=== PATIENT | male | born 1990 | race Caucasian/White ===

== ENCOUNTER → 2019-10-05 08:27 | Outpatient (BNVA) | payer OTHER, SELFPAY | PROVIDERS: Family Provider Nurse Practitioner; PCP Family Medicine; Visit Provider Counselor Mental Health | DX: F33.0 Major depressive disorder, recurrent, mild (principal) | CPT/HCPCS: 90834 ==

== ENCOUNTER → 2019-11-08 10:53 | Outpatient (BNVA) | payer OTHER, SELFPAY | PROVIDERS: Family Provider Nurse Practitioner; PCP Family Medicine; Visit Provider Psychiatry & Neurology Psychiatry | DX: F43.20 Adjustment disorder, unspecified (principal) | CPT/HCPCS: 80061; 83036; 83721 ==

== ENCOUNTER → 2020-03-09 08:19 | Outpatient (BNVA) | payer MEDICAID, SELFPAY ==
[2019-11-11 14:46] VITALS: BP 114/73; BMI 46.2
== END ==
PROVIDERS: Family Provider Nurse Practitioner; PCP Family Medicine; Visit Provider Counselor Mental Health
DX: F33.41 Major depressive disorder, recurrent, in partial remission (principal)
CPT/HCPCS: 90832

== ENCOUNTER → 2020-05-19 12:06 | Outpatient (BNVA) | payer MEDICAID, SELFPAY ==
[2019-11-11 14:46] VITALS: BP 114/73; BMI 46.2
== END ==
PROVIDERS: Family Provider Nurse Practitioner; PCP Family Medicine; Visit Provider Internal Medicine
DX: Z20.828 Contact with and (suspected) exposure to other viral communicable diseases (principal)
CPT/HCPCS: 87635

== ENCOUNTER → 2020-06-13 08:45 | Outpatient (BNVA) | payer MEDICAID, SELFPAY ==
[2019-11-11 14:46] VITALS: BP 114/73; BMI 46.2
== END ==
PROVIDERS: Family Provider Nurse Practitioner; PCP Family Medicine; Visit Provider Counselor Mental Health
DX: F33.0 Major depressive disorder, recurrent, mild (principal)
CPT/HCPCS: 90834; 90832

== ENCOUNTER → 2020-06-21 08:33 | Outpatient (BNVA) | payer MEDICAID, SELFPAY ==
[2019-11-11 14:46] VITALS: BP 114/73; BMI 46.2
== END ==
PROVIDERS: Family Provider Nurse Practitioner; PCP Family Medicine; Visit Provider Counselor Mental Health
DX: F33.0 Major depressive disorder, recurrent, mild (principal)
CPT/HCPCS: 90834; 90832

== ENCOUNTER 2021-02-14 15:30 | Outpatient (CLI) | payer BC, MEDICAID, SELFPAY ==
[2019-11-11 14:46] VITALS: BP 114/73; BMI 46.2
--- NOTE | 2021-02-14 16:01 | XR_ITS ---
WS: [id number] Lumbar spine, AP, both obliques, lateral and L5-S1 spot, 02/14/2021 Clinical Data: LOW BACK PAIN Comparison: None. Findings: No compression fractures or subluxation is seen. No disc space narrowing is seen. The transverse proc esses and SI joints are normal. The oblique films show no spondylolisthesis or spondylolisthesis. XR/XR lumbar spine min 4V [id number] Impression: Negative lumbar spine.
== END 2021-02-14 15:31 | disposition home or self-care (01) ==
LOC: RAD 15:41
PROVIDERS: PCP Nurse Practitioner Family; Visit Provider Nurse Practitioner Family
DX: M54.5 Low back pain (principal)
CPT/HCPCS: 72110

== ENCOUNTER 2021-03-07 20:00 | Outpatient (CLI) | payer BC, MEDICAID, SELFPAY ==
[2019-11-11 14:46] VITALS: BP 114/73; BMI 46.2
== END 2021-03-07 20:01 | disposition home or self-care (01) ==
LOC: SLEEP 03-08 09:38
PROVIDERS: PCP Nurse Practitioner Family; Visit Provider Nurse Practitioner Family
DX: G47.10 Hypersomnia, unspecified (principal); R53.83 Other fatigue; R06.83 Snoring; G47.33 Obstructive sleep apnea (adult) (pediatric)
CPT/HCPCS: 95810

== ENCOUNTER 2021-04-13 13:35 | Outpatient (CLI) | payer BC, MEDICAID, SELFPAY ==
[2019-11-11 14:46] VITALS: BP 114/73; BMI 46.2
--- NOTE | 2021-04-13 11:00 | US_ITS ---
WS: [id number] SCROTAL ULTRASOUND EXAMINATION CLINICAL INFORMATION: TESTICULAR PAIN, LEFT COMPARISON: None. FINDINGS: TESTES Right testicle is normal in appearance. Normal vascularity. Right testes size: 4.8 cm x 3.6 cm x 2.3 cm. Left testicle not visualized Increased echogenic tissue throughout the left scrotum likely due to recurrent inguinal hernia with h erniated omental fat. No definite peristalsis to indicate herniated bowel. EPIDIDYMIDES Enlarged right epididymis with increased vascularity compatible with epididymitis HYDROCELE Small left hydrocele VARICOCELE None. OTHER FINDINGS None. US/US scrotum 99202 IMPRESSION: 1. Right epididymitis 2. Left testicle is not visualized. 3. Increased echogenic tissue throughout the left scrotum likely due to recurr ent inguinal hernia with herniated omental fat. No definite peristalsis to que osiel herniated bowel. Recommend further evaluation with CT abdomen pelvis with contrast for better anatomic detail. Service Dispatcher communicated Preliminary results to office at time of exam
--- NOTE | 2021-04-13 16:15 | CTR_ITS ---
PROCEDURE INFORMATION: Exam: CT Pelvis With Contrast Exam date and time: 04/13/2021 4:15 PM Age: 31 years old Clinical indication: Abnormal findings; Abnormal imaging test; Patient HX: Scrotal/testiclar pain w swelling - abn US - epididimitis and hernia; Additional info: Scrotal/testicular pain TECHNIQUE: Imaging protocol: Computed tomography images of the pelvis with intravenous contrast. Radiation optimization: All CT scans at this facility use at least one of these dose optimization techniques: automated exposure control; mA and/or kV adjustment per patient size (includes targeted exams where dose is matched to clinical indication); or iterative reconstruction. Contrast material: OMNI 300; Contrast volume: 95 ml; Contrast route: INTRAVENOUS (IV); COMPARISON: CT Abdomen/Pelvis Renal [id number] 06/09/2018 6:51 AM RADIATION DOSE METRICS: Total DLP (mGy-cm): 1558.53 FINDINGS: Stomach and bowel: Visualized small bowel and colon are unremarkable. Appendix: No evidence of appendicitis. Intraperitoneal space: See Soft tissues finding. Lymph nodes: Unremarkable. No enlarged lymph nodes. Urinary bladder: Normal. No mass. Reproductive: Small volume left scrotum hydrocele. Mild diffuse scrotal wall thickening. Bones/joints: Unremarkable. No acute fracture. No dislocation. Soft tissues: Massive left inguinal hernia contains fat and bowel loops. Nonspecific stranding in the hernia sac. Mild left scrotum varicocele. CT/CT pelvis w con* [id number] IMPRESSION: 1. There is redemonstration of a very large left inguinal hernia which contains a large volume of abdominal fat, nondilated large bowel loops, however there is some nonspecific fat stranding of the herniated fat. 2. Small volume left scrotum hydrocele. 3. Mild diffuse scrotal wall thickening. 4. Mild left scrotum varicocele. Radiation Dose CTDIVOL = (mGy): DLP = 1558.53 (mGy-cm)
[2021-04-13] MEDS: iohexol 300 mg/mL 100 mL Btl IV (16:24)
== END 2021-04-13 13:36 | disposition home or self-care (01) ==
PROVIDERS: PCP Nurse Practitioner Family; Visit Provider Nurse Practitioner Family
DX: N50.812 Left testicular pain (principal); N50.82 Scrotal pain; N43.3 Hydrocele, unspecified; I86.1 Scrotal varices; N45.1 Epididymitis
CPT/HCPCS: 72193; 76870

== ENCOUNTER → 2021-05-04 10:15 | Outpatient (BNVA) | payer BC, MEDICAID, SELFPAY ==
[2019-11-11 14:46] VITALS: BP 114/73; BMI 46.2
== END ==
PROVIDERS: PCP Nurse Practitioner Family; Visit Provider Surgery
DX: K40.91 Unilateral inguinal hernia, without obstruction or gangrene, recurrent (principal); Z20.822 Contact with and (suspected) exposure to COVID-19
CPT/HCPCS: 87635

== ENCOUNTER 2021-05-09 07:44 | Day surgery (SDC) | payer BC, MEDICAID, SELFPAY ==
[2019-11-11 14:46] VITALS: BP 114/73; BMI 46.2
[2021-05-08 11:13] VITALS: BMI 30.9
[2021-05-08 11:14] VITALS: BMI 46.3
[2021-05-09] VITALS (11 sets, daily range): BP systolic 101–136; BP diastolic 70–92; PULSE 109–113; RESP 16–25; TEMP 36.2–37.1; O2SAT 94–100
--- NOTE | 2021-05-09 07:55 | W.PM.OPSUD ---
Surgery/Procedure H&P Update DATE OF PROCEDURE: May 09, 2021 DATE H&P PERFORMED: 04/27/21 H&P UPDATE INFORMATION: I have reviewed H&P completed within last 30 days, I have examined patient prior to procedure and No changes to prior documentation PLANNED PROCEDURE: Operation Date: 05/09/21 09:35 Proposed Procedures p Inguinal Hernia Repair w/ Mesh 72745 K40.91(Left) - Vinny Louise MD
--- NOTE | 2021-05-09 08:24 | ANES.PREANE2 ---
Pre-Anesthetic Assessment Pre-Anesthetic Assessment: Height/Weight: Height 1.63 m Weight 122.47 kg Temp Pulse Resp BP Pulse Ox 97.1 F L 110 H 18 123/92 97 05/09/21 08:02 05/09/21 08:02 05/09/21 08:02 05/09/21 08:02 05/09/21 08:02 Preop Diagnosis: Recurrent left inguinal hernia Proposed Procedure: Operation Date: 05/09/21 09:35 Proposed Procedures p Inguinal Hernia Repair w/ Mesh 20650 K40.91(Left) - Vinny Louise MD Was Beta Alejo taken within 24 hours: N/A Was Clonidine taken within 24 hours: N/A Last intake: Intake Last Liquid Date 05/08/21 Last Liquid Time 20:00 Last Solid Date 05/08/21 Last Solid Time 20:00 Social: Social History: No alcohol and No tobacco Exam: Pre-Anes Outpt Exam: alert, oriented x 3, clear to auscultation bilaterally and regular rate & rhythm Airway: Submandibular: WNL Cervical ROM: WNL MP: 3 Dentition: Full Pulmonary: Pulmonary: Sleep apnea Metabolic: Metabolic: DM and Morbid obesity Neuropsych: Neuropsych: Depression Anesthetic Plan: ASA status: 3 Anesthesia: General Risk of > 500 ml blood loss (7ml/kg in children): No PFSH Anesthesia PFSH: Medical History (Updated 04/27/21 @ 08:58 by Vinny Louise MD) Diabetes Mild episode of recurrent major depressive disorder Surgical History (Updated 04/27/21 @ 08:58 by Vinny Louise MD) Status post left inguinal hernia repair Social History Current gender identity: Male Data Anesthesia Cardiac Studies: No Data to Display
[2021-05-09 08:36] LABS: Glucose Point of Care 165 mg/dL (70-110)
[2021-05-09] MEDS: vancomycin 1,000 MG in sodium chloride 0.9% 250 ML 250 MG IV (08:40)
[2021-05-09] MEDS: sodium chloride 0.9% 1,000 ML 30 ML IV (08:40)
[2021-05-09] MEDS: lidocaine 1% INJ 20 mL INJECTION (09:40)
[2021-05-09] MEDS: acetaminophen 1,000 MG/100 ML PIGGYBACK 400 MG IV (13:51)
--- NOTE | 2021-05-09 14:16 | ANE.PACU2 ---
Inpatient post-anesthesia follow up: Airway intact: Yes Vital signs: Temperature 97.8 F Pulse Rate 110 Respiratory Rate 18 Blood Pressure 110/80 Pulse Oximetry 96 Oxygen Delivery Me thod Nasal Cannula Oxygen Flow Rate 2 Fraction of Inspir ed Oxygen Hydration adequate: Yes Nausea and vomiting: No Pain level: 5 Mental status: Baseline
--- NOTE | 2021-05-09 16:10 | PM.OP ---
Operative Report Date of procedure: May 09, 2021 Pre-op Diagnosis: Recurrent left inguinal hernia Pre-op Diagnosis: BMI 46 Post-op Findings: Recurrent incarcerated direct and indirect left inguinal hernia containing omentum and sigmoid colon Procedure Done: Open repair of recurrent incarcerated direct and indirect left inguinal hernia with Bard mesh and plug Specimens removed/disposition: hernia sac Surgeon: Vinny Louise Anesthesia: General Condition: stable Disposition: PACU Procedure: A 5 cm incision was made over the left inguinal canal using 15 blade, the subcutaneous tissue, Miriam's fascia divided using electrocautery until the external oblique aponeurosis was identified. Using a 15 blade, a small opening was made in the external oblique aponeurosis along the length of the fibers, this was grasped with hemostats and opened using Metzenbaum scissors medially to the external ring and laterally beyond the internal ring. The contents of inguinal canal were dissected free from the wall and a [place] drain was placed around it. There was a large hernia extending into the scrotum. I bluntly dissected the hernia sac from the scrotum and the left testes and this was externalized. The testes and the spermatic cord was bluntly dissected free from the large hernia sac. The hernia sac was opened and there was omentum and sigmoid colon noted within the hernia sac. The sac was dissected down to the inguinal canal where there was a large direct hernia. The herniated contents could not be reduced and through the direct hernia and therefore the omentum was excised using a energy device. The hernia sac was excised at the level of the direct hernia. After patient placing the patient in Trendelenburg position the sigmoid colon was finally reduced into the peritoneal cavity. There was also a smaller indirect hernia. A large plug was placed in the internal ring as well as in the direct hernia since the posterior wall was attenuated and sutured using 2-0 Prolene [id number] suture. A Proloop mesh was introduced and using 2-0 Prolene suture the medial edge of the mesh were sutured to the fascia overlying the pubic tubercle, and the suture was run to approximate the inferior edge of the mesh to the shelving edge of inguinal ligament to a point beyond the internal ring. Interrupted 2-0 Prolene suture was used to approximate the superior edge of the mesh to the internal oblique muscles and the 2 limbs of the mesh was sutured lateral to the internal ring and approximated to the internal oblique muscle. Lateral to the internal ring, the posterior wall was again attenuated and this was reinforced with the Ultrapro mesh secured in place with 2-0 Prolene sutures. The wound was copiously irrigated with saline, good hemostasis noted, Surgicel was placed within the scrotum since there was some venous oozing and the external oblique aponeurosis was closed with running 2-0 Vicryl suture, Miriam's fascia approximated using running 3-0 Vicryl suture in layers, and skin was closed using running subcuticular 4-0 Monocryl suture and Dermabond. 30 mL of 0.5% Marcaine was infiltrated around the incision. The patient was extubated and transferred to recovery room in stable condition.
== END 2021-05-09 14:49 | disposition home or self-care (01) ==
PROVIDERS: PCP Nurse Practitioner Family; Visit Provider Surgery
PROC: (CPT 49521; principal; 2021-05-09 09:25)
DX: K40.31 Unilateral inguinal hernia, with obstruction, without gangrene, recurrent (principal); G47.30 Sleep apnea, unspecified; E11.9 Type 2 diabetes mellitus without complications; E66.01 Morbid (severe) obesity due to excess calories; Z68.42 Body mass index [BMI] 45.0-49.9, adult; F32.9 Major depressive disorder, single episode, unspecified
CPT/HCPCS: 49521; 36416; 82962; 96365; C1781; J1100; J2405; J2704; J3010; J3490; J3535; J7030; J7050

== ENCOUNTER → 2021-09-02 15:18 | Outpatient (BNVA) | payer BC, MEDICAID, SELFPAY ==
[2019-11-11 14:46] VITALS: BP 114/73; BMI 46.2
== END ==
PROVIDERS: PCP Nurse Practitioner Family; Visit Provider Family Medicine
DX: J01.90 Acute sinusitis, unspecified (principal)
CPT/HCPCS: 87400; 87635

== ENCOUNTER → 2023-06-23 13:04 | Outpatient (BNVA) | payer OTHER, SELFPAY ==
[2019-11-11 14:46] VITALS: BP 114/73; BMI 46.2
== END ==
PROVIDERS: PCP Nurse Practitioner Family; Visit Provider Psychiatry & Neurology Psychiatry
DX: F33.0 Major depressive disorder, recurrent, mild (principal); Z79.899 Other long term (current) drug therapy
CPT/HCPCS: 80061; 83036

== ENCOUNTER 2024-01-06 20:00 | Outpatient (CLI) | payer BC, SELFPAY ==
[2023-07-07 10:23] VITALS: BP 129/80; BMI 46.0
== END 2024-01-06 20:01 | disposition home or self-care (01) ==
LOC: SLEEP 01-07 18:53
PROVIDERS: PCP Family Medicine Adult Medicine; Visit Provider Family Medicine Adult Medicine
DX: G47.33 Obstructive sleep apnea (adult) (pediatric) (principal)
CPT/HCPCS: 95811

== ENCOUNTER 2024-06-26 01:49 | Emergency (ER) | payer SELFPAY ==
[2023-07-07 10:23] VITALS: BP 129/80; BMI 46.0
[2024-06-26 01:56] VITALS: BP 143/87; PULSE 120; RESP 18; TEMP 36.6; O2SAT 97
[2024-06-26 01:59] VITALS: BP 143/87; PULSE 116; O2SAT 98
--- NOTE | 2024-06-26 03:26 | XRR_ITS ---
PROCEDURE INFORMATION: Exam: XR Chest Exam date and time: 06/26/2024 3:32 AM Age: 34 years old Clinical indication: Cough and shortness of breath; Patient HX: Cough with congestion and SOB. TECHNIQUE: Imaging protocol: Radiologic exam of the chest. Views: 1 view. COMPARISON: CR XR KUB [id number] 06/29/2018 1:00 PM FINDINGS: Lungs: Unremarkable. No consolidation. Pleural spaces: Unremarkable. No pleural effusion. No pneumothorax. Heart/Mediastinum: Unremarkable. No cardiomegaly. Bones/joints: Unremarkable. XR/XR chest 1V portable [id number] IMPRESSION: No acute findings.
--- NOTE | 2024-06-26 03:31 | ECG_ITS ---
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 Measurements Intervals [place] Rate: 105 P: 45 MO: 147 QRS: 14 QRSD: 88 T: 44 QT: 305 QTc: 403 Interpretive Statements SINUS TACHYCARDIA Otherwise Normal No previous ECG available for comparison Electronically Signed On 06-26-2024 13:40:06 CDT by Selvin Gray M.D. [email or web address]
[2024-06-26 03:48] LABS: Covid PCR NO RESULT (Negative); Influenza A NO RESULT (Negative); Influenza B NO RESULT (Negative); Respiratory Syncytial Virus Ce NO RESULT (Negative)
[2024-06-26 03:59] VITALS: BP 135/63; PULSE 115; O2SAT 99
[2024-06-26 04:36] LABS: Basophils # 0.1 10^3/uL (0.0-0.1); Basophils % 0.7 %; Eosinophils # 0.3 10^3/uL (0.0-0.8); Eosinophils % 3.4 %; Hematocrit 44.5 % (37-53); Lymphocytes # 2.1 10^3/uL (0.8-4.8); Lymphocytes % 20.7 %; Mean Corpuscular HGB Conc 29.9 g/dL (30-55); Mean Corpuscular Hemoglobin 27.7 pg (27-33); Mean Corpuscular Volume 92.5 fl (82-101); Mean Platelet Volume 10.2 fL (7.4-10.4); Monocytes # 0.9 10^3/uL (0.2-0.9); Neutrophils # 6.56 10^3/uL (1.8-7.7); Neutrophils % 65.8 %; Nucleated Red Blood Cells % 0 %; Platelet Count 206 10^3/cmm (157-399); Red Blood Count 4.81 10^6/uL (3.85-5.65); Red Cell Distribution Width 14.3 % (12.1-15.1); White Blood Count 9.97 10^3/uL (3.29-11.43)
[2024-06-26 05:04] LABS: Alanine Aminotransferase 21 U/L (0-41); Albumin Level 3.8 g/dL (3.5-5.2); Alkaline Phosphatase 108 U/L (40-130); Anion Gap 15.6 (5-19); Aspartate Amino Transferase 23 U/L (0-40); Blood Urea Nitrogen 11 mg/dL (6-20); Calcium 8.3 mg/dL (8.5-10.5); Carbon Dioxide 23 mmol/L (22-29); Chloride 99 mmol/L (98-107); Globulin 3.5 g/dL (1.3-4.6); Glomerular Filtration Rate 129.1 mL/min (90-130); Glucose 139 mg/dL (65-115); NT Pro B Type Natriuretic Pept < 36 pg/mL (0-125); Osmolality Calculated 280 mOsm/kg (285-295); Potassium 3.6 mmol/L (3.5-5.1); Sodium 134 mmol/L (136-145); Total Bilirubin 0.3 mg/dL (0.15-1.2); Total Protein 7.3 g/dL (6.6-8.7)
--- NOTE | 2024-06-26 05:06 | W.ED.URI ---
HPI - URI/Sore Throat General: Chief Complaint: Upper Respiratory Infection Stated Complaint: COUGH Time Seen by Provider: 06/26/24 03:07 History of Present Illness: 34 year old male says he's had upper respiratory symptoms such as cough congestion and sore throat for the past five days or so. He denies fever. He is short of breath to some degree. No GI symptoms. He has also noticed leg swelling of late and was concerned because he is diabetic. Swelling is bilateral. He denies chest pain. Related Data Home Medications Medication Instructions Recorded Confirmed cetirizine 10 mg capsule (Zyrtec) 10 mg PO DAILY PRN 10/02/23 rosuvastatin 5 mg tablet 5 mg PO DAILY 10/02/23 Previous Rx's Medication Instructions Recorded docusate sodium 250 mg capsule 250 mg PO DAILY bowel management 08/26/23 #90 caps ibuprofen 200 mg tablet 200 mg PO Q6H PRN Pain (Scale 08/26/23 Score 1-3) #100 tabs metformin 500 mg tablet 500 mg PO DAILY diabetes #90 tabs 08/26/23 multivitamin 1 tab PO DAILY vitamins #90 tabs 08/26/23 BD utra fine lancets 33G #100 ea 10/02/23 contour next test strips #100 ea 10/02/23 CPAP setting Auto 8-12 with 10 #1 ea 01/13/24 Optimal azithromycin 250 mg tablet See Rx Instructions PO .COMPLEX #6 06/26/24 tabs Allergies Allergy/AdvReac Type Severity Reaction Status Date / Time amoxicillin Allergy Unknown Unknown Verified 09/30/23 07:29 [facility] ED [facility]: Medical History (Updated 06/26/24 @ 05:09 by Mina Harry DO) Never smoked tobacco History of kidney stones Morbid obesity with BMI of 45.0-49.9, adult Constipation Diabetes type 2, controlled 03/20/23 A1C 5.9, Obstructive sleep apnea hypopnea, severe 01/06/2024 sleep study showed setting of CPAP range 8-12 with optimal at 10 Anxiety Psychiatric care Mild episode of recurrent major depressive disorder Surgical History History of tonsillectomy History of ureter stent Hx of kidney stones with stent Status post left inguinal hernia repair (05/09/21) recurrent, First left inguinal hernia repair by Dr. Louise and then second hernia repair on 05/09/2021 Dr. Louise when it reoccurred. Family History (Updated 08/26/23 @ 11:18 by Palak Tellez LPN) Father No problems noted. Mother Multiple sclerosis Social History Smoking and tobacco/nicotine status: never used tobacco/nicotine Alcohol intake: never Substance/Drug Use: never Current gender identity: Male Physical Exam Const: COMMON NORMALS: no acute distress GENERAL APPEARANCE: cooperative; not ill appearing and not frail appearing HENMT: COMMON NORMALS: normocephalic, atraumatic and Normal external nose present HEAD & SCALP: normocephalic and atraumatic FACE & SINUS: normal facial exam and face symmetric NOSE: Normal external nose present Eye: COMMON NORMALS: Equal, round and reactive pupils present and EOMs intact bilaterally PUPIL: Yes Equal, round and reactive pupils present Neck/C-Spine: GENERAL: Yes trachea midline Chest: CHEST: Yes Symmetrical chest wall rise Resp: COMMON NORMALS: normal respiratory effort, No retractions, No use of accessory muscles and clear to auscultation bilaterally AUSCULTATION: clear to auscultation bilaterally Cardio: COMMON NORMALS: regular rate and regular rhythm RATE: regular rate RHYTHM: regular rhythm GI: COMMON NORMALS: Normal to inspection, nondistended, normoactive bowel sounds present Extremity: COMMON NORMALS: no pedal edema Neuro: IZABEL COMA SCALE: document GCS findings Izabel coma scale eye opening: Spontaneous Izabel coma scale verbal response: Orientated [place] coma scale motor response: Obey commands Izabel coma scale total score: 15 SENSORY EXAM: Yes extremities (intact) Psych: COMMON NORMALS: speech normal SPEECH: Yes normal speech Skin: COMMON NORMALS: no rashes or lesions noted GENERAL SKIN EXAM: no rashes or lesions noted Course Vital Signs: Vital signs: Vital Signs Temperature 98 F 06/26/24 01:56 Pulse Rate 102 H 06/26/24 05:38 Respiratory Rate 18 06/26/24 01:56 Blood Pressure 147/87 06/26/24 05:38 Pulse Oximetry 96 06/26/24 05:38 MDM - URI/Sore Throat Medical Decision Making Labs unremarkable. chest x ray is negative. He will be discharged with bronchitis dx. return for new or worsening symptoms. Lab Data 06/26/24 04:31 11/02/24 04:31 Radiology Impressions Chest X-Ray 06/26/24 03:26 IMPRESSION: No acute findings. Laboratory Results WBC 9.97 10^3/uL (3.29-11.43) 06/26/24 04:31 RBC 4.81 10^6/uL (3.85-5.65) 06/26/24 04:31 Hgb 13.30 g/dL (11.27-16.99) 06/26/24 04:31 Hct 44.5 % (37-53) 06/26/24 04:31 MCV 92.5 fl (82-101) 06/26/24 04:31 MCH 27.7 pg (27-33) 06/26/24 04:31 MCHC 29.9 g/dL (30-55) L 06/26/24 04:31 RDW 14.3 % (12.1-15.1) 06/26/24 04:31 Plt Count 206 10^3/cmm (157-399) 06/26/24 04:31 MPV 10.2 fL (7.4-10.4) 06/26/24 04:31 Neut % (Auto) 65.8 % 06/26/24 04:31 Lymph % (Auto) 20.7 % 06/26/24 04:31 [place] % (Auto) 9.0 % 06/26/24 04:31 Eos % (Auto) 3.4 % 06/26/24 04:31 Baso % (Auto) 0.7 % 06/26/24 04:31 Neut # (Auto) 6.56 10^3/uL (1.8-7.7) 06/26/24 04:31 Lymph # (Auto) 2.1 10^3/uL (0.8-4.8) 06/26/24 04:31 [place] # (Auto) 0.9 10^3/uL (0.2-0.9) 06/26/24 04:31 Eos # (Auto) 0.3 10^3/uL (0.0-0.8) 06/26/24 04:31 Baso # (Auto) 0.1 10^3/uL (0.0-0.1) 06/26/24 04:31 Nucleated RBC % (auto) 0 % 06/26/24 04:31 Nucleated RBCs # 0.0 /100WBC 06/26/24 04:31 Sodium 134 mmol/L (136-145) L 06/26/24 04:31 Potassium 3.6 mmol/L (3.5-5.1) 06/26/24 04:31 Chloride 99 mmol/L (98-107) 06/26/24 04:31 Carbon Dioxide 23 mmol/L (22-29) 06/26/24 04:31 Anion Gap 15.6 (5-19) 06/26/24 04:31 BUN 11 mg/dL (6-20) 06/26/24 04:31 Creatinine 0.7 mg/dL (0.7-1.2) 06/26/24 04:31 GFR Calculation 129.1 mL/min (90-130) 06/26/24 04:31 Glucose 139 mg/dL (65-115) H 06/26/24 04:31 Calculated Osmolality 280 mOsm/kg (285-295) L 06/26/24 04:31 Calcium 8.3 mg/dL (8.5-10.5) L 06/26/24 04:31 Total Bilirubin 0.3 mg/dL (0.15-1.2) 06/26/24 04:31 AST 23 U/L (0-40) 06/26/24 04:31 ALT 21 U/L (0-41) 06/26/24 04:31 Alkaline Phosphatase 108 U/L (40-130) 06/26/24 04:31 NT-Pro-B Natriuret Pep < 36 pg/mL (0-125) 06/26/24 04:31 Total Protein 7.3 g/dL (6.6-8.7) 06/26/24 04:31 Albumin 3.8 g/dL (3.5-5.2) 06/26/24 04:31 Globulin 3.5 g/dL (1.3-4.6) 06/26/24 04:31 Coronavirus (PCR) No result (Negative) 06/26/24 03:32 Influenza A (PCR) No result (Negative) 06/26/24 03:32 Influenza Type B (PCR) No result (Negative) 06/26/24 03:32 RSV (PCR) No result (Negative) 06/26/24 03:32 All radiology interpretation(s) finalized by discharge Discharge Plan Discharge Patient Disposition: Home Clinical Impression: Bronchitis Condition: Stable Prescriptions: New azithromycin 250 mg tablet See Rx Instructions .ROUTE .COMPLEX Qty: 6 0RF Rx Instructions: For 250 mg dose pack: take 500 mg today (day 1), then 250 mg for 4 days (days 2-5) No Action ibuprofen 200 mg tablet 200 mg PO Q6H PRN (Reason: Pain (Scale Score 1-3)) Qty: 100 3RF metformin 500 mg tablet 500 mg PO DAILY Qty: 90 1RF docusate sodium 250 mg capsule 250 mg PO DAILY Qty: 90 3RF multivitamin Tablet 1 tab PO DAILY Qty: 90 3RF rosuvastatin 5 mg tablet 5 mg PO DAILY Zyrtec 10 mg capsule 10 mg PO DAILY PRN (DME) contour next test strips See Rx Instructions .Route .MEDSUPPLY Qty: 100 3RF Rx Instructions: As directed 1 strip via meter once a day (DME) BD utra fine lancets 33G See Rx Instructions .Route .MEDSUPPLY Qty: 100 3RF Rx Instructions: 1 lancet as directed once a day (DME) CPAP setting Auto 8-12 with 10 Optimal See Rx Instructions .ROUTE .MEDSUPPLY Qty: 1 0RF Rx Instructions: 01/06/2024 sleep study showed setting of CPAP range 8-12 with optimal at 10 Discharge Orders: Discharge ED (Routine); Ordered 06/26/24 Ordered By: Mina Harry Referrals: Dani Cotto [Primary Care Provider] - 1-3 days Patient Instructions: Acute Bronchitis (ED), Opioid Safety, Pain Management Activity Restrictions/Additional Instructions: Return for worsening shortness of breath, fever despite 2-3 doses of antibiotics, development of chest pain, other concerning symptoms. Call your doctor on Friday for a follow-up appointment. Medication as directed. Coding Level of Care Code ED Title I Instructional Assistant for Mat Dan
[2024-06-26] MEDS: azithromycin 250 mg Tablet 500 MG PO (05:31)
[2024-06-26] MEDS: FUROsemide 40 mg Tablet PO (05:31)
[2024-06-26 05:38] VITALS: BP 147/87; PULSE 102; O2SAT 96
== END 2024-06-26 05:41 | disposition home or self-care (01) ==
PROVIDERS: Emergency Provider Emergency Medicine; PCP Family Medicine
DX: J40 Bronchitis, not specified as acute or chronic (principal); Z11.52 Encounter for screening for COVID-19; E11.9 Type 2 diabetes mellitus without complications
CPT/HCPCS: 0241U; 71045; 80053; 83880; 85025; 93005; 99285; Q0144